=== PATIENT | female | born 1935 | race Caucasian/White ===

== ENCOUNTER 2022-10-11 05:25 | Day surgery (SDC) | payer MEDICARE, OTHER ==
[~2022-10-11] VITALS: Ht 147.3 cm; Wt 70.5 kg
[~2022-10-11 05:25] MED LIST: APIX2.5T PO; ATOR20TA86 PO; DAPA10TA PO; FERR325T27 PO; FURO20 PO; METO25 PO; SODIUM CHLORIDE 0.9% 1,000 ML ONE
[2022-10-11] MEDS ORDERED: SODIUM CHLORIDE 0.9% 1,000 ML IV ONE ×2 (05:30→07:30)
[2022-10-11] MEDS ORDERED: DIAZEPAM 5 MG TABLET ONE (05:37)
[2022-10-11] MEDS ORDERED: DiphenhydrAMINE HCL 50 MG CAPSULE ONE (05:38)
[2022-10-11] MEDS ORDERED: ASPIRIN 81 MG CHEWABLE TABLET ONE (05:38)
[2022-10-11 06:26] LABS: PROTHROMBIN TIME 10.9 SEC (9.4-11.6)
[2022-10-11 06:36] LABS: GLUCOMETER DEV NAME(LOC) SDS.; GLUCOSE,POINT OF CARE 158 MG/DL (70-110)
[2022-10-11] MEDS ORDERED: ICOS1CAP PO (06:44)
[2022-10-11] MEDS ORDERED: PRAV10TA39 PO (06:44)
[2022-10-11] MEDS ORDERED: APIX5TAB PO (06:44)
[2022-10-11] MEDS ORDERED: LIDOCAINE/PF 1% 30 ML VIAL ONE (07:00)
[2022-10-11] MEDS ORDERED: HEPARIN SODIUM 1000 UNITS/NS 1,000 ML ONE (07:00)
[2022-10-11] MEDS ORDERED: IOHEXOL 300 MG/ML 100 ML VIAL ONE (07:00)
[2022-10-11] MEDS ORDERED: SODIUM BICARBONATE 50 MEQ/50 ML VIAL ONE (07:00)
[2022-10-11] MEDS ORDERED: FentaNYL CITRATE PF 100 MCG/2 ML VIAL ONE (07:17)
[2022-10-11] MEDS ORDERED: MIDAZOLAM HCL 2 MG/2 ML VIAL ONE (07:18)
[2022-10-11] MEDS ORDERED: DiphenhydrAMINE HCL 50 MG CAPSULE PO ONE (07:30)
[2022-10-11] MEDS ORDERED: DIAZEPAM 5 MG TABLET PO ONE (07:30)
[2022-10-11] MEDS ORDERED: ASPIRIN 81 MG CHEWABLE TABLET PO ONE (07:30)
[2022-10-11 07:34] VITALS: BP 170/100
[2022-10-11] MEDS ORDERED: 0.9% SODIUM CHLORIDE 10 ML SYRINGE IVP ONE (07:54)
[2022-10-11] MEDS ORDERED: SODIUM CHLORIDE 0.9% 500 ML IV ONE (08:00)
[2022-10-11] MEDS ORDERED: FentaNYL CITRATE PF 100 MCG/2 ML VIAL IVP ONE (08:00)
[2022-10-11] MEDS ORDERED: MIDAZOLAM HCL 2 MG/2 ML VIAL IVP ONE (08:00)
[2022-10-11] MEDS ORDERED: METOPROLOL TARTRATE 5 MG/5 ML VIAL ONE (08:04)
[2022-10-11] MEDS ORDERED: HydrALAZINE HCL 20 MG/ML VIAL ONE (08:12)
[2022-10-11] MEDS ORDERED: LIDOCAINE 1% 30 ML/SOD BICARB 8.4% 4 ML SQ ONE (08:15)
[2022-10-11] MEDS ORDERED: METOPROLOL TARTRATE 5 MG/5 ML VIAL IVP ONE ×2 (08:15→08:30)
[2022-10-11] MEDS ORDERED: IOHEXOL 300 MG/ML 100 ML VIAL ICOR ONE (08:15)
[2022-10-11] MEDS ORDERED: HEPARIN SODIUM 2,000 UNITS in HEPARIN SODIUM 1000 UNITS/NS 1,000 ML IARTER ONE (08:15)
[2022-10-11] MEDS ORDERED: HydrALAZINE HCL 20 MG/ML VIAL IVP ONE (08:30)
== END 2022-10-11 13:15 | disposition home or self-care (01) ==
LOC: CATHLAB 05:25
PROVIDERS: ATTEND Internal Medicine Interventional Cardiology
DX: I25.10 Atherosclerotic heart disease of native coronary artery without angina pectoris (principal); I48.91 Unspecified atrial fibrillation; I10 Essential (primary) hypertension; E11.9 Type 2 diabetes mellitus without complications; K21.9 Gastro-esophageal reflux disease without esophagitis; Z98.890 Other specified postprocedural states; Z79.01 Long term (current) use of anticoagulants; Z79.899 Other long term (current) drug therapy
CPT/HCPCS: 93458; 82962; 85610; 85730; 36415; 99152; 93005; C1760; J3010; J1644; J0360; J3490 ×3; J2250; J7030; Q9967